=== PATIENT | male | born 1945 | race Caucasian/White ===

== ENCOUNTER 2021-05-06 08:21 | Emergency (ER) | payer MEDICARE, OTHER ==
[~2021-05-06] VITALS: Ht 172.7 cm; Wt 67.0 kg
[~2021-05-06 08:21] MED LIST: ASPI-612 PO; CEPH-357 PO; ENAL10TA78 PO; HYDR1TAB PO; IBUP-1984 PO; MULT-963 PO; NIA500ERT PO; OM-31CAP9 PO; SIMV-42 PO
[2021-05-06 08:25] VITALS: BP 151/72
== END 2021-05-06 13:02 | disposition home or self-care (01) ==
LOC: ER 08:21
DX: S52.501D Unspecified fracture of the lower end of right radius, subsequent encounter for closed fracture with routine healing (principal); M25.531 Pain in right wrist; I10 Essential (primary) hypertension; E11.9 Type 2 diabetes mellitus without complications; M19.90 Unspecified osteoarthritis, unspecified site; Z79.82 Long term (current) use of aspirin; Z79.2 Long term (current) use of antibiotics; Z79.899 Other long term (current) drug therapy; W18.30XD Fall on same level, unspecified, subsequent encounter
CPT/HCPCS: 29125; 73110; 99283

== ENCOUNTER 2022-03-16 08:32 | Emergency (ER) | payer MEDICARE, OTHER ==
[~2022-03-16] VITALS: Ht 172.7 cm; Wt 80.0 kg
[2022-03-16 09:08] VITALS: BP 138/67
== END 2022-03-16 11:31 | disposition home or self-care (01) ==
LOC: ER 08:33
DX: H61.22 Impacted cerumen, left ear (principal); I10 Essential (primary) hypertension; E11.9 Type 2 diabetes mellitus without complications; M19.90 Unspecified osteoarthritis, unspecified site
CPT/HCPCS: 69209; 99282

== ENCOUNTER 2023-09-30 12:14 | Outpatient (CLI) | payer MEDICARE, OTHER ==
[2023-09-30] MEDS: PERFLUTREN PROTEIN-A MICROSPHR (Optison) 0.22 MG/ML 3ML VIAL IV ONE (13:15)
[2023-10-29] MEDS ORDERED: AMLO5TAB PO (14:43)
[2023-10-30] MEDS ORDERED: fish oil (13:40)
[2023-11-01] MEDS ORDERED: METF-436 PO (11:58)
[2023-11-01] MEDS ORDERED: NIAC500C12 PO (12:00)
[2023-11-01] MEDS ORDERED: OMEG-133 PO (12:07)
== END 2023-09-30 23:59 | disposition home or self-care (01) ==
LOC: CARD DIAG 12:14
PROVIDERS: ATTEND Internal Medicine Interventional Cardiology
DX: R94.31 Abnormal electrocardiogram [ECG] [EKG] (principal); I50.22 Chronic systolic (congestive) heart failure
CPT/HCPCS: 93308; Q9956

== ENCOUNTER 2023-10-21 09:54 | Day surgery (SDC) | payer MEDICARE, OTHER ==
[2023-10-18 09:34] LABS: BASOPHILS % (AUTO) 0.5 % (0-1); EOSINOPHILS # (AUTO) 0.5 X10'3 (0-0.9); EOSINOPHILS % (AUTO) 8.9 % (0-6); HEMATOCRIT 34.1 % (42.0-52.0); HEMOGLOBIN 11.2 g/dl (14.0-17.9); LYMPHOCYTES # (AUTO) 1.4 X10'3 (1.1-4.8); MEAN CORPUSCULAR HEMOGLOBIN 30.4 PG (27.0-31.0); MEAN CORPUSCULAR HGB CONC 32.7 g/dL (33.0-36.5); MEAN CORPUSCULAR VOLUME 92.9 FL (78-98); MEAN PLATELET VOLUME 8.2 FL (7.4-10.4); MONOCYTES # (AUTO) 0.4 X10'3 (0-0.9); NEUTROPHILS # (AUTO) 3.3 X10'3 (1.8-7.7); NEUTROPHILS % (AUTO) 58.6 % (42-75); PLATELET COUNT 94 X10'3 (140-440); RED BLOOD COUNT 3.67 X10'6 (4.70-6.10); RED CELL DISTRIBUTION WIDTH 14.9 % (11.5-14.5); WHITE BLOOD COUNT 5.6 X10'3 (4.5-11.0)
[2023-10-18 09:44] LABS: APTT 25 SECONDS (22-32); INR 1.1 INR; PROTHROMBIN TIME 11.7 SECONDS (9.0-12.0)
[2023-10-18 09:49] LABS: ALBUMIN 3.5 G/DL (3.4-5.0); ANION GAP 9 (8-16); BLOOD UREA NITROGEN 25 MG/DL (7-18); BUN/CREATININE RATIO 14.3 (10.0-20.0); CALCIUM 9.2 MG/DL (8.5-10.1); CHLORIDE 108 MMOL/L (99-107); CHOL/HDL RATIO 1.7 (0.00-4.99); CHOLESTEROL 109 MG/DL (0-200); CREATININE 1.75 MG/DL (0.60-1.10); GLUCOSE 182 MG/DL (70-104); HDL CHOLESTEROL 65 MG/DL (35-60); LDL CHOLESTEROL 33 MG/DL (50-100); POTASSIUM 4.7 MMOL/L (3.5-5.1); SODIUM 143 MMOL/L (135-145); TOTAL CARBON DIOXIDE 26.4 MMOL/L (24-32); TRIGLYCERIDES 48 MG/DL (20-135); eGFR 38 ML/MIN
[~2023-10-21] VITALS: Ht 172.7 cm; Wt 73.3 kg
[2023-10-21] VITALS (10 sets, daily range): BP systolic 104–153; BP diastolic 55–80; PULSE 51–73; RESP 10–16; TEMP 97.7; O2SAT 98–99
[2023-10-21] MEDS ORDERED: FLO0.4C PO (10:31)
[2023-10-21] MEDS ORDERED: FINA5TAB11 PO (10:31)
[2023-10-21] MEDS ORDERED: METF-1203 PO (10:31)
[2023-10-21] MEDS ORDERED: METO-395 PO (10:33)
[2023-10-21] MEDS ORDERED: NITR0.4T48 PO (10:33)
[2023-10-21] MEDS ORDERED: ENAL-78 PO (10:36)
[2023-10-21] MEDS ORDERED: INDO50CA96 PO (10:36)
[2023-10-21] MEDS: normal saline 1,000 ML IV SCH (12:00)
[2023-10-21] MEDS: diphenhydrAMINE 25mg capsule PO PRN (13:06)
[2023-10-21] MEDS: LORazepam 0.5 MG tablet PO PRN (13:08)
[2023-10-21] MEDS ORDERED: LIDOcaine 1% (10mg/ml) 2ml vial ONE (14:15)
[2023-10-21] MEDS ORDERED: fentaNYL/PF 50MCG/1 ML 2ML syringe ONE (14:15)
[2023-10-21] MEDS ORDERED: verapamil 2.5 mg/ml inj IV ONE (14:15)
[2023-10-21] MEDS ORDERED: midazolam 1 mg/ML 2ml injection ONE (14:15)
[2023-10-21] MEDS ORDERED: heparin 1,000unit/ml 10ml vial 10 ML ONE (14:16)
[2023-10-21] MEDS ORDERED: iohexol 350MG/ML 100ml bottle IV ONE (14:16)
[2023-10-21] MEDS ORDERED: nitroGLYCERIN 500mcg/5mL D5W 5 ML IV ONE (14:17)
[2023-10-21] MEDS ORDERED: HYDROcodone/acetaminophen 10/325mg tab PO PRN (16:00)
[2023-10-21] MEDS ORDERED: HYDROcodone/acetaminophen 5mg/325mg tablet PO PRN (16:00)
== END 2023-10-21 18:30 | disposition home or self-care (01) ==
LOC: SSTAY O 09:54
PROVIDERS: ATTEND Student in an Organized Health Care Education/Training Program
DX: R94.39 Abnormal result of other cardiovascular function study (principal); I25.10 Atherosclerotic heart disease of native coronary artery without angina pectoris; I11.0 Hypertensive heart disease with heart failure; I50.9 Heart failure, unspecified; E11.9 Type 2 diabetes mellitus without complications; E78.5 Hyperlipidemia, unspecified; Z79.82 Long term (current) use of aspirin; Z79.84 Long term (current) use of oral hypoglycemic drugs; Z79.899 Other long term (current) drug therapy
CPT/HCPCS: 80048; 80061; 82948; 85025; 85610; 85730; 93005; 93458; 99152; J1644; J2250; J3010; J3490; J7030; Q0163; Q9967; A6258; A6402; A6449; C1894

== ENCOUNTER 2024-09-24 11:29 | Emergency (ER) | payer MEDICARE, OTHER ==
[~2024-09-24] VITALS: Ht 172.7 cm; Wt 58.2 kg
[~2024-09-24 11:29] MED LIST changes: +AMLO5TAB PO; -CEPH-357 PO; -ENAL10TA78 PO; +FINA5TAB11 PO; -HYDR1TAB PO; -IBUP-1984 PO; +METF-1203 PO; +METF-436 PO; -MULT-963 PO; +NIAC500C12 PO; -OM-31CAP9 PO; +TAMS-55 PO; +TRAM50TA2 PO; +fish oil
[2024-09-24 11:31] VITALS: BP 137/83; PULSE 83; RESP 15; O2SAT 100
[2024-09-24] MEDS: LIDOcaine 1% W/epiNEPHrine 1:100,000 20ml vial SQ STA (12:34)
[2024-09-24] MEDS ORDERED: HYDR-3965 PO (13:51)
[2024-09-24 14:05] VITALS: TEMP 98.5
== END 2024-09-24 14:07 | disposition home or self-care (01) ==
LOC: ER 11:30
DX: S52.501A Unspecified fracture of the lower end of right radius, initial encounter for closed fracture (principal); I10 Essential (primary) hypertension; E11.9 Type 2 diabetes mellitus without complications; M19.90 Unspecified osteoarthritis, unspecified site; Z88.8 Allergy status to other drugs, medicaments and biological substances; W01.0XXA Fall on same level from slipping, tripping and stumbling without subsequent striking against object, initial encounter; Y93.89 Activity, other specified; Y92.89 Other specified places as the place of occurrence of the external cause; Y99.8 Other external cause status
CPT/HCPCS: 25605; 73100; 73110; 99284; A4565; A6222; A6446; A6449

== ENCOUNTER 2025-01-16 10:46 | Emergency (ER) | payer MEDICARE, OTHER ==
[~2025-01-16] VITALS: Ht 172.7 cm; Wt 65.9 kg
[2025-01-16 10:48] VITALS: BP 125/72; PULSE 90; RESP 16; O2SAT 100
--- NOTE | 2025-01-16 11:53 | Physician Documentation ---
History of Present Illness ~ Chief Complaint: Mechanical Fall Stated Complaint: R RIB PAIN FALL NO THINNERS Time Seen by MD: 11:04 Primary Medical Doctor: JEREMY HPI Year old male presents to the ED with a complaint of a fall yesterday injuring his right flank and rib area Tetanus within 5 Years?: Yes Medication Reconciliation Allergies: Coded Allergies: amlodipine (Verified Allergy, Mild, 01/16/25) Redness/rash to skin with mild itchiness according to patient report Scheduled Amlodipine Besylate (Amlodipine Besylate), 10 MG PO QPM, (Reported) Aspirin (Aspir 81), 81 MG PO QPM, (Reported) Finasteride (Finasteride), 1 TAB PO QPM, (Reported) Metformin HCl (Metformin HCl), 1,000 MG PO QAM, (Reported) Metformin Hcl (Metformin Hcl), 500 MG PO QPM, (Reported) Niacin* (Niaspan*), 1,000 MG PO QAM, (Reported) Niacin* (Niacin Timed Release*), 500 MG PO QPM, (Reported) Simvastatin* (Zocor*), 20 MG PO QPM, (Reported) Tamsulosin Hcl* (Flomax*), 0.4 MG PO QPM, (Reported) Scheduled PRN Tramadol Hcl (Tramadol Hcl), 50 MG PO Q4H PRN for pain Miscellaneous Medications [fish oil ], Unknown Dose, (Reported) Past Medical History Past Medical History: Hypertension, Diabetes, Arthritis Past Surgical History: noncontributory, orthopedic surgeries Alcohol Use: Rarely Drug Use: none Lives with: Spouse Lives In: Home Occupation: retired Review of Systems All Other Systems at this time: Reviewed and Negative ROS As stated above in the HPI, otherwise all systems are reviewed and negative. Physical Exam Vital Signs: Temperature: 97.6, Source: Temporal, Heart Rate: 90, Respiratory Rate: 16, BP: 125/72, Pulse Oximetry: 100, Weight: 65.910 Oxygen Flow Rate: 0 Physical Exam General: Alert, no apparent distress. \ Respiratory: Lungs clear, no respiratory distress. Chest: No accessory muscle use. Cardiovascular: Regular rate and rhythm, no murmurs. ribs: tender to palpation Skin: Normal color, warm and dry. No edema, no ecchymosis. Progress Results/Orders Results/Orders Vital Signs 01/16/25 10:48 Temp 97.6 Pulse 90 Resp 16 B/P (MAP) 125/72 Pulse Ox 100 O2 Flow Rate 0 Medical Decision Making Findings Presents with 10th 11th and 12th rib fractures on the right side hemodynamically stable and not complaining of severe pain in his time I am going to discharge him with pain medications and to follow up with primary Differential Dx:Considerations: Include: Closed head injury, Cardiac injury, Fracture(s), Intraabdominal injury, Pneumothorax, Cerebral contusion, Pulmonary contusion, Spine injury, Tracheal injury, Urological injury, Vascular injury, Abrasion(s), Contusion(s), Foreign body(s), Hematoma(s), Laceration(s), Encephalopathy, Other Departure Disposition: HOME / SELF CARE / HOMELESS Impression: Primary Impression: Fall Additional Impression: Fracture of rib Condition: Stable Discharge Instructions: Fall Prevention in the Home, Adult, [id number], Rib Fracture Referrals: NO PRIMARY CARE PROVIDER (PCP) Prescriptions Hydrocodone Bit/Acetaminophen 5/325 MG (Robbins 5/325 MG) 5 Mg/325 Mg Tablet 1 TAB PO Q6H PRN for pain, #14 TAB Prov: JENNIFER THAKKAR NP 01/16/25 Signature Scribe Signature: f Attestation: Scribed for Jennifer Thakkar Game Operator by Jennifer Olmedo NP . 01/16/25 12:39 JENNIFER THAKKAR NP Jan 16, 2025 11:53
--- NOTE | 2025-01-16 12:16 | RADIOLOGY REPORT ---
FRONTAL CHEST AND right RIB RADIOGRAPHS HISTORY: RIGHT RIB PAIN TECHNIQUE: Multiple views of the right ribs with frontal view of the chest. COMPARISON: None. FINDINGS: There is an acute fracture of the right 10th, 11th and 12th ribs. No pneumothorax. Right lung yepez are clear. The cardiac silhouette does not appear enlarged. Right infusion catheter is present with its tip terminating in the superior vena cava. Right nephros seven tube noted. Impression: 1. Acute right 10th, 11th and 12th rib fractures.
[2025-01-16] MEDS ORDERED: HYDR-3965 PO (12:38)
[2025-01-16 12:43] VITALS: TEMP 97.6
== END 2025-01-16 12:44 | disposition home or self-care (01) ==
LOC: ER 10:47
DX: S22.41XA Multiple fractures of ribs, right side, initial encounter for closed fracture (principal); E11.9 Type 2 diabetes mellitus without complications; I10 Essential (primary) hypertension; M19.90 Unspecified osteoarthritis, unspecified site; Z88.8 Allergy status to other drugs, medicaments and biological substances; W19.XXXA Unspecified fall, initial encounter; Y93.89 Activity, other specified; Y92.89 Other specified places as the place of occurrence of the external cause; Y99.8 Other external cause status
CPT/HCPCS: 71100; 99283